=== PATIENT | female | born 1995 | race Caucasian/White ===

== ENCOUNTER 2016-09-13 02:31 | Observation (INO) | payer BC ==
[2016-09-13 05:33] LABS: ABSOLUTE BASOPHILS # (AUTO) 0.1 10^3/uL (0.0-0.2); ABSOLUTE EOSINOPHILS # (AUTO) 0.1 10^3/uL (0.0-0.6); ABSOLUTE LYMPHOCYTES (AUTO) 1.8 10^3/uL (0.5-4.7); ABSOLUTE MONOCYTES (AUTO) 0.8 10^3/uL (0.1-1.4); ABSOLUTE NEUT (AUTO) 10.2 10^3/uL (1.7-8.2); BASOPHILS % (AUTO) 0.4 % (0-2); EOSINOPHILS % (AUTO) 0.5 % (0-6); HEMATOCRIT 41.5 % (36.0-47.0); HEMOGLOBIN 13.4 g/dL (12.0-15.5); HGB HCT DIFFERENCE -1.3; LYMPHOCYTES % (AUTO) 13.8 % (13-45); MEAN CORPUSCULAR HEMOGLOBIN 28.7 pg (27.0-33.4); MEAN CORPUSCULAR HGB CONC 32.3 g/dL (32.0-36.0); MEAN CORPUSCULAR VOLUME 89 fl (80-97); MONOCYTES % (AUTO) 6.5 % (3-13); RED BLOOD COUNT 4.67 10^6/uL (3.72-5.28); RED CELL DISTRIBUTION WIDTH 13.2 % (11.5-14.0); SEGMENTED NEUTROPHILS % (AUTO) 78.8 % (42-78)
[2016-09-13 05:43] LABS: ALANINE AMINOTRANSFERASE 59 U/L (5-35); ALBUMIN 4.6 g/dL (3.7-5.6); ALKALINE PHOSPHATASE 104 U/L (50-135); ANION GAP 12 (5-19); ASPARTATE AMINO TRANSFERASE 188 U/L (5-30); BLOOD UREA NITROGEN 8 mg/dL (7-20); CALCIUM 9.9 mg/dL (8.4-10.2); CARBON DIOXIDE 27 mmol/L (22-30); CHLORIDE 105 mmol/L (98-107); CREATININE RESULT 0.62 mg/dL (0.52-1.25); GLUCOSE 101 mg/dL (75-110); POTASSIUM 3.8 mmol/L (3.6-5.0); TOTAL PROTEIN 7.4 g/dL (6.3-8.2)
[2016-09-13] MEDS ORDERED: OXYCODONE-ACETAMINOPHEN 5-325 MG TABLET PO ONE (05:43)
--- NOTE | 2016-09-13 05:43 | ER Document Report ---
ED GI/ - General Chief Complaint: Abdominal Pain Stated Complaint: ABDOMINAL PAIN Time seen by provider: 05:32 Mode of Arrival: Ambulatory Information source: Patient Notes: 20-year-old female complaining of upper abdominal pain since midnight with some nausea. Pain level is 5/5. She's had 5 episodes over the past 3 weeks. She had a gastric sleeve November 2015. She saw her surgeon in [place] 8 days ago and he suspected gallbladder problems not due to the gastric sleeve surgery. They are visiting the area. No fever or chills. G0. No diarrhea or constipation. No dysuria. She is on her menses at this time. TRAVEL OUTSIDE OF THE [place] IN LAST 30 DAYS: No - Related Data Allergies/Adverse Reactions: No Known Allergies Allergy (Verified 09/13/16 02:39) Home Medications: Current Home Medications No Home Medications 09/13/16 [History] Past Medical History - General Information source: Patient - Social History Smoking Status: Current Every Day Smoker Chew tobacco use (# tins/day): No Frequency of alcohol use: Occasional Drug Abuse: None Lives with: Family Family History: Reviewed & Not Pertinent - Medical History Medical History: Negative Renal/ Medical History: Denies: Hx Peritoneal Dialysis Past Surgical History: Reports: Hx Tonsillectomy, Other - gastric sleeve Review of Systems - Review of Systems Constitutional: No symptoms reported EENT: No symptoms reported Cardiovascular: No symptoms reported Respiratory: No symptoms reported Gastrointestinal: See HPI Genitourinary: No symptoms reported Female Genitourinary: No symptoms reported Musculoskeletal: No symptoms reported Skin: No symptoms reported Hematologic/Lymphatic: No symptoms reported Neurological/Psychological: No symptoms reported Physical Exam - Vital signs Vitals: Temp Pulse Resp BP Pulse Ox 97.6 F 74 18 137/87 H 100 09/13/16 02:41 09/13/16 02:41 09/13/16 02:41 09/13/16 02:41 09/13/16 02:41 Interpretation: Normal - General General appearance: Appears well, Alert In distress: None - HEENT Head: Normocephalic, Atraumatic Eyes: Normal Conjunctiva: Normal. No: Icteric Pupils: PERRL Mucous membranes: Normal Pharynx: Normal Neck: Supple - Respiratory Respiratory status: No respiratory distress Chest status: Nontender Breath sounds: Normal Chest palpation: Normal - Cardiovascular Rhythm: Regular Heart sounds: Normal auscultation Murmur: No - Abdominal Inspection: Normal Distension: No distension Bowel sounds: Normal Tenderness: Tender - mostly RUQ, some epigastric and LUQ Organomegaly: No organomegaly - Back Back: Normal, Nontender. No: CVA tenderness - Extremities General upper extremity: Normal inspection, Nontender, Normal color, Normal ROM , Normal temperature General lower extremity: Normal inspection, Nontender, Normal color, Normal ROM , Normal temperature, Normal weight bearing. No: Madiha's sign - Neurological Neuro grossly intact: Yes Cognition: Normal Orientation: AAOx4 Lola Coma Scale Eye Opening: Spontaneous Lola Coma Scale Verbal: Oriented [place] Coma Scale Motor: Obeys Commands [place] Coma Scale Total: 15 Speech: Normal Motor strength normal: LUE, RUE, LLE, RLE Sensory: Normal - Psychological Associated symptoms: Normal affect, Normal mood - Skin Skin Temperature: Warm Skin Moisture: Dry Skin Color: Normal Skin irregularity: negative: Rash Course - Re-evaluation Re-evalutation: 09/13/16 05:44 I have consulted with the supervisory physician per [facility] Guidelines., dr. castro for the [place] 09/13/16 06:24 RBCs and urine due to menses, LFTs mildly elevated, white count is 13,000 with a minimal shift 78.8 09/13/16 07:27 Pain is resolved pending radiology interpretation of the ultrasound. 09/13/16 07:36 No GI coverage 09/13/16 07:[address] Rojas will come see the patient and the patient care transferred to Saige JONES will take over care of the patient - Vital Signs Vital signs: Temp Pulse Resp BP Pulse Ox 97.6 F 74 18 137/87 H 100 09/13/16 02:41 09/13/16 02:41 09/13/16 02:41 09/13/16 02:41 09/13/16 02:41 - Laboratory Result Diagrams: 09/13/16 05:19 09/13/16 05:19 Laboratory results interpreted by me: 09/13/16 09/13/16 09/13/16 05:19 05:19 05:19 WBC 13.0 H Seg Neutrophils % 78.8 H Absolute Neutrophils 10.2 H AST 188 H ALT 59 H Urine Protein 30 H Urine Ketones TRACE H Urine Blood LARGE H Urine Bilirubin SMALL H Urine Urobilinogen 4.0 H Discharge - Discharge Clinical Impression: Elevated liver enzymes Condition: Stable Disposition: HOME, SELF-CARE
[2016-09-13 06:00] LABS: APPEARANCE,URINE SLIGHTLY-CLOUDY; BILIRUBIN,URINE SMALL (NEGATIVE); CALCIUM OXALATE CRYSTALS,URINE RARE /HPF; GLUCOSE, URINE NEGATIVE (NEGATIVE); KETONES,URINE TRACE mg/dL (NEGATIVE); LEUKOCYTE ESTERASE,URINE NEGATIVE (NEGATIVE); NITRITE,URINE NEGATIVE (NEGATIVE); PROTEIN,URINE 30 mg/dL (NEGATIVE); URINE SPECIFIC GRAVITY 1.032
[2016-09-13] MEDS ORDERED: NORMAL SALINE 1000 ML 1,000 ML IV ONE (06:24)
[2016-09-13] MEDS ORDERED: NORMAL SALINE 1000 ML 1,000 ML IV PRN (08:21)
--- NOTE | 2016-09-13 08:34 | PDOC H&P ---
History of Present Illness Admission Date/PCP: 09/13/2069 Patient complains of: Abdominal pain, nausea History of Present Illness: SWETA PEPPER is a 20 year old female presents to the emergency department complaining of abdominal pain epigastric and radiates to the back for several hours. Over the last 3 weeks patient's had similar episodes, but not as long. It is 8 months status post gastric resection for the city. She lost approximately 80 pounds. There is a family history of gallbladder disease in a grandmother. A week and a half ago the patient was seen by her general surgeon in [facility] and was told she may have gallbladder disease and was set up for a gallbladder ultrasound this week. The patient and her mother traveled to [place] yesterday after which time she developed the acute onset of abdominal pain. As chronic constipation. Denies history of other gastrointestinal symptoms. Not vomited. He emerged from which she had a gallbladder ultrasound showed cholelithiasis, dilated common bile duct and intrahepatic ducts. Surgery was consulted; she was advised admission. Past Medical History GI History Note: Obesity Past Surgical History Past Surgical History: Reports: Tonsillectomy, Other - gastric sleeve resection , laparoscopic, [facility], 2016 Social History Lives with: Family Smoking Status: Current Every Day Smoker Family History Family History: Reviewed & Not Pertinent Family History: Family history gallbladder disease in grandmother Parental Family History Reviewed: Yes Children Family History Reviewed: Yes Sibling(s) Family History Reviewed.: Yes Medication/Allergy Home Medications: No Home Medications 09/13/16 Allergies/Adverse Reactions: No Known Allergies Allergy (Verified 09/13/16 02:39) Review of Systems Constitutional: PRESENT: weight loss Eyes: PRESENT: other - None Ears: ABSENT: hearing changes Nose, Mouth, and Throat: PRESENT: other - None Cardiovascular: PRESENT: other - Denies Respiratory: ABSENT: cough, hemoptysis Gastrointestinal: PRESENT: other - As per history of present illness Genitourinary: PRESENT: other - Patient currently on. Musculoskeletal: PRESENT: other - Denies Neurological: PRESENT: as per HPI Physical Exam Vital Signs: Temp Pulse Resp BP Pulse Ox 97.6 F 74 18 137/87 H 100 09/13/16 02:41 09/13/16 02:41 09/13/16 02:41 09/13/16 02:41 09/13/16 02:41 Intake & Output 09/12/16 09/13/16 09/14/16 06:59 06:59 06:59 Weight 91.7 kg General appearance: PRESENT: no acute distress Head exam: PRESENT: normocephalic Eye exam: PRESENT: EOMI Ear exam: PRESENT: normal external ear exam Mouth exam: PRESENT: moist Neck exam: PRESENT: full ROM Respiratory exam: PRESENT: clear to auscultation dane Cardiovascular exam: PRESENT: RRR Pulses: PRESENT: normal radial pulses, normal femoral pulses, normal dorsalis pedis pul GI/Abdominal exam: PRESENT: other - Operative scars consistent with previous surgery. Minimal right upper quadrant tenderness to deep palpation. No rigidity no peritoneal signs no organomegaly Rectal exam: PRESENT: deferred Extremities exam: PRESENT: full ROM Musculoskeletal exam: PRESENT: full ROM Neurological exam: PRESENT: oriented to person, oriented to place, oriented to time, oriented to situation Psychiatric exam: PRESENT: anxious Results Laboratory Results: 09/13/16 05:19 09/13/16 05:19 09/13/16 09/13/16 09/13/16 05:19 05:19 05:19 WBC 13.0 H RBC 4.67 Hgb 13.4 Hct 41.5 MCV 89 MCH 28.7 MCHC 32.3 RDW 13.2 Plt Count 292 Seg Neutrophils % 78.8 H Lymphocytes % 13.8 Monocytes % 6.5 Eosinophils % 0.5 Basophils % 0.4 Absolute Neutrophils 10.2 H Absolute Lymphocytes 1.8 Absolute Monocytes 0.8 Absolute Eosinophils 0.1 Absolute Basophils 0.1 Sodium 144.0 Potassium 3.8 Chloride 105 Carbon Dioxide 27 Anion Gap 12 BUN 8 Creatinine 0.62 Est GFR ( Amer) > 60 Est GFR (Non-Af Amer) > 60 Glucose 101 Calcium 9.9 Total Bilirubin 1.0 AST 188 H ALT 59 H Alkaline Phosphatase 104 Total Protein 7.4 Albumin 4.6 Lipase 84.0 Urine Color EJREMY Urine Appearance SLIGHTLY-CLOUDY Urine pH 5.0 Ur Specific [place] 1.032 Urine Protein 30 H Urine Glucose (UA) NEGATIVE Urine Ketones TRACE H Urine Blood LARGE H Urine Nitrite NEGATIVE Ur Leukocyte Esterase NEGATIVE Urine RBC (Auto) >182 Impressions: Abdomen Ultrasound 09/13/16 06:32 IMPRESSION: 1. Fatty infiltrated liver. 2. Small gallstones. Positive sonographic Navarrete's sign. Dilated intra and extrahepatic bile ducts. Status: Image reviewed by me - Gallstones multiple within the lumen of the gallbladder; duct measured at 9 mm. No choledocholithiasis seen. Fatty infiltration of the liver Assessment & Plan - Diagnosis (1) Elevated liver enzymes Is this a current diagnosis for this admission?: YesPlan: Possibly secondary to passing of gallstone through the common bile duct however alkaline phosphatase and total bilirubin within normal limits. Furthermore, her lipase level is normal. Patient is currently asymptomatic (2) Symptomatic cholelithiasis Is this a current diagnosis for this admission?: YesPlan: Clinically and radiographically the patient has evidence of chronic cholecystitis with cholelithiasis. He may have passed a stone through her common bile duct currently her total bilirubin is normal, normal bowel duct is only minimally elevated and she is pain-free. I have offered interval laparoscopic, possible open cholecystectomy with intraoperative cholangiography. [facility]. we also discussed the risk benefit ratio of leaving the hospital , traveling back to [place], [address], and seeking medical and surgical treatment there over the weekend. Intimately we collectively decided to stay at [facility] and undergo the procedure as described by Dr. markham. I have discussed the role of intraoperative cholangiography, and possible results. If the patient is found to have retained common bile duct stone, she may require postoperative ERCP, which may or may not be available at [facility]. The patient and her mother understand and agree to proceed with the offered procedure. Thorough explanation of the mechanics of the operation, as well as risks benefits and alternatives including bleeding, infection, bile duct injury, need for a drain, and additional surgery were all discussed. (3) Smoker Is this a current diagnosis for this admission?: Yes (4) Status post gastric surgery Is this a current diagnosis for this admission?: YesPlan: Status post gastric sleeve, restrictive bariatric procedure, 2016, [facility]; no evidence of complications from that surgery this time. - Time Time Spent: 50 to 70 Minutes Critical Time spent with patient: 15-24 minutes Medications reviewed and adjusted accordingly: Yes Anticipated discharge: Home - Inpatient Certification Based on my medical assessment, after consideration of the patient's comorbidities, presenting symptoms, or acuity I expect that the services needed warrant INPATIENT care.: Yes I certify that my determination is in accordance with my understanding of Medicare's requirements for reasonable and necessary INPATIENT services [42 CFR 412.3e].: Yes Medical Necessity: Need For IV Fluids, Need for Pain Control, Need for IV Antibiotics, Need for Surgery
[2016-09-13] MEDS ORDERED: BUPIVACAINE HCL 0.25 % INJ/PF (2.5 MG/1 ML) 30 ML VIAL ONE (08:47)
[2016-09-13] MEDS ORDERED: MIDAZOLAM 2 MG/2 ML INJ ONE (08:56)
[2016-09-13] MEDS ORDERED: PROPOFOL INJ 200 MG/20 ML VIAL IV ONE (08:56)
[2016-09-13] MEDS ORDERED: FENTANYL CITRATE INJ/PF 250 MCG/5 ML AMPULE ONE (08:56)
[2016-09-13] MEDS ORDERED: MORPHINE SULFATE 10 MG/ML INJ ONE (08:57)
[2016-09-13] MEDS ORDERED: CEFAZOLIN INJ 1 GM VIAL ONE (09:41)
[2016-09-13] MEDS ORDERED: FENTANYL CITRATE INJ/PF 100 MCG/2 ML AMPUL IV PRN ×3 (09:53)
[2016-09-13] MEDS ORDERED: MORPHINE SULFATE 10 MG/ML INJ IV PRN ×2 (09:53→10:55)
[2016-09-13] MEDS ORDERED: PROMETHAZINE HCL INJ 25 MG/1 ML VIAL IV PRN ×2 (09:53)
[2016-09-13] MEDS ORDERED: DIPHENHYDRAMINE HCL 50 MG/ML VIAL IV PRN (09:53)
[2016-09-13] MEDS ORDERED: MEPERIDINE HCL/PF INJ 25 MG/1 ML DISP.SYRIN IV PRN (09:53)
[2016-09-13] MEDS ORDERED: GLUCAGON,HUMAN RECOMB 1 MG INJ ONE (10:21)
[2016-09-13] MEDS ORDERED: ONDANSETRON HCL INJ/PF 4 MG/2 ML SDV IV PRN (10:55)
--- NOTE | 2016-09-13 11:15 | Operative Report ---
Operative Report DATE OF SURGERY: 09/13/16 PREOPERATIVE DIAGNOSIS: 1. Symptomatic cholelithiasis with cholecystitis. 2. Elevated liver function studies. 3. Dilated common bile duct POSTOPERATIVE DIAGNOSIS: Same with acute cholecystitis; retained distal common bile duct stone(s) OPERATION: 1. Laparoscopic cholecystectomy. 2. Intraoperative cholangiography with full strength Isovue contrast. 3. Interpretation of intraoperative cholangiography SURGEON: FERNANDO SIERRA ANESTHESIA: GA TISSUE REMOVED OR ALTERED: 1 gallbladder with stones COMPLICATIONS: None ESTIMATED BLOOD LOSS: scant INTRAOPERATIVE FINDINGS: See below PROCEDURE: After obtaining informed consent, the patient was taken to the operating room. General Anesthesia was induced; the arms were extended, and the abdomen was exposed, and prepped and draped in a sterile fashion. Instrumentation was set up for laparoscopic cholecystectomy. Surgical plan and surgical timeout were conducted. A horizontal incision was made above the umbilicus at the previous transverse scar, and a verres needle was inserted uneventfully into the peritoneal cavity. Pneumoperitoneum was established. The verres needle was removed and a 5 mm trocar was inserted and a 5 mm flexible laparoscope was inserted. Visualization of the peritoneal cavity confirmed safe, uneventful entry. Under direct visualization 3 additional 5 mm ports were established, one in the subxiphoid position and second and third in the subcostal position at the site of the previous scars. Visualization of the hepatobiliary anatomy revealed no anatomic variations. A grasper was placed on the fundus of the gallbladder and the gallbladder is elevated over the right surface of the liver; a second grasper was used to grasp the infundibulum of the gallbladder. The neck of the gallbladder and junction with the cystic duct was dissected out. The Cystic artery was in its usual location medial and cephalad to the cystic duct. The cystic artery was surrounded with a right angle clamp, clipped twice proximally and divided with laparoscopic scissors. We now opened the triangle of Calot by dividing the peritoneal reflection on both the medial and lateral sides of the cystic duct infundibular junction. The critical view was obtained. The gallbladder wall was very thin as was the tissue in the neck of the gallbladder. We now milked the cystic duct of any possible stones; during this maneuver, a hole was made in the neck of the gallbladder and this was used to evacuate several small stones. A laparoscopic clip was placed on the gallbladder side of the neck, and using laparoscopic kaylin, hole in the cystic duct was opened. A percutaneous visible cholangiogram catheter was threaded through the anterior abdominal wall uneventfully through a stab wound made with the 11 blade. The mini introducer was removed, after threaded into the cystic duct, then secured into place with a clip. Of note, bile expressed from the cystic duct opening appeared to be under pressure. Several small stones were milked out of the more proximal cystic duct. We leveled the patient out, removed laparoscopic instruments and proceeded to perform intraoperative cholangiography using full strength Isovue total of 3 mL. This revealed visualization of the more proximal cystic duct, and the common bile duct, which was dilated and tapered towards the distal end. Subsequent images showed visualization of the common hepatic drop, and the right and left hepatic ducts. Gave the patient 1 mg of glucagon, waited approximately 10 minutes and shot subsequent films and there remained no visualization of contrast into the duodenum. in Fact there was a meniscus sign at the distal common bile duct consistent with duct obstruction due to stone. We returned to the peritoneal cavity laparoscopically, removed the clip on the cystic duct, and removed the cholangiogram catheter. We transected the cystic duct completely and allowed it to decompress completely. The gallbladder was now removed from the undersurface of the liver using hook cautery dissection. Graspers were repositioned and the gallbladder was removed uneventfully by placing it in an Endobag along with several spilled stones and brought from the abdominal cavity through the super umbilical port site incision. The specimen was examined, then passed off to pathology for permanent analysis. We returned to the peritoneal cavity check for bleeding, and there was none. We then secured the cystic duct stump with a single 3-0 loop PDS suture; We Confirmed satisfactory placement of clips on the cystic artery were secured . At this point we felt the operation was complete. The subcutaneous tissue was then anesthetized with quarter percent Marcaine Sponge and needle counts are correct. All ports removed under direct visualization pneumoperitoneum evacuated, and 5 mm port wounds closed with 3-0 Vicryl suture, benzoin and Steri -Strips. The patient was extubated, and taken to the recovery room in stable condition. Arrangements will be made for the patient to receive postoperative ERCP, clearance of her distal common bile duct.
[2016-09-13] MEDS: FENTANYL CITRATE INJ/PF 100 MCG/2 ML AMPUL ONE ×2 (11:20→11:25)
[2016-09-13] MEDS ORDERED: ONDANSETRON HCL INJ/PF 4 MG/2 ML SDV ONE ×2 (11:21→11:34)
[2016-09-13] MEDS ORDERED: ROCURONIUM BROMIDE INJ 50 MG/5 ML VIAL IV ONE (11:34)
[2016-09-13] MEDS ORDERED: SUCCINYLCHOLINE CHLORIDE INJ 200 MG/10 ML VIAL ONE (11:34)
[2016-09-13] MEDS ORDERED: DEXAMETHASONE SOD PHOSPHATE INJ 4 MG/1 ML VIAL ONE (11:34)
--- NOTE | 2016-09-13 13:39 | PDOC TRANSFER SUMMARY ---
General Admission Date/PCP: 09/13/16 08:19 Resuscitation Status: Full Code - Transfer Diagnosis (1) Elevated liver enzymes Is this a current diagnosis for this admission?: Yes (2) Symptomatic cholelithiasis Is this a current diagnosis for this admission?: Yes (3) Smoker Is this a current diagnosis for this admission?: Yes (4) Status post gastric surgery Is this a current diagnosis for this admission?: Yes - Transfer Medications Home Medications: No Home Medications 09/13/16 Transfer Medications: Current Medications Sodium Chloride (Nacl 0.9% 1000 Ml Iv Soln) 1,000 mls @ 150 mls/hr IV CONTINUOUS PRN PRN Reason: THIS MED IS NOT "PRN" Stop: 10/13/16 08:20 Last Admin: 09/13/16 12:29 Dose: 1,000 ml Cefazolin Sodium/Dextrose (Ancef Rtu 1 Gm/D5w 50 Ml Premix Bag) 1 gm in 50 mls @ 100 mls/hr IV Q8 JOSE DAVID Stop: 09/20/16 13:59 Morphine Sulfate (Morphine 10 Mg/Ml Inj) 2 mg IV Q4HP PRN PRN Reason: PAIN Stop: 09/20/16 10:54 Last Admin: 09/13/16 12:28 Dose: 2 mg Ondansetron HCl (Zofran Inj/Pf 4 Mg/2 Ml Sdv) 4 mg IV Q4HP PRN PRN Reason: FOR NAUSEA/VOMITING Stop: 10/13/16 10:54 - Allergies Allergies/Adverse Reactions: No Known Allergies Allergy (Verified 09/13/16 02:39) Hospital Course Hospital Course: The patient is a 20-year-old white female, originally from [place], 1 year status post partial sleeve gastrectomy for morbid obesity who lost 80 pounds and now presents to the emergency department with a several week history of intermittent abdominal pain. She traveled to [place] with her mother and because of unrelenting abdominal pain and nausea she was seen in the emergency department. She was evaluated found to have multiple gallstones by ultrasonography, dilated intra-and extrahepatic biliary ducts and mildly elevated AST and ALt. Total bilirubin and alkaline phosphatase were normal. The patient's pain did resolve. The patient was admitted to the surgical service kept nothing by mouth and taken to the operating room where she underwent laparoscopic cholecystectomy, intraoperative cholangiography. She was found to have a gallbladder with multiple stones, multiple stones in the cystic duct which were removed. The cholangiogram showed an intact intra-and extrahepatic biliary tree with dilatation, and no reflux of contrast into the duodenum despite passage of time and glucagon injection. The findings were consistent with distal common duct stone. The patient tolerated procedure well. Arrangements were made through Dr. Moses Lin, general surgeon, to have the patient transferred to [facility] where his team in conjunction with on-call gastroenterology will coordinate ERCP, stone extraction. All of the above events and plans with the patient and patient's mother. They are in agreement to proceed. Physical Exam Vital Signs: Temp Pulse Resp BP Pulse Ox 97.3 F 58 L 16 111/73 99 09/13/16 13:02 09/13/16 13:02 09/13/16 13:02 09/13/16 13:02 09/13/16 13:02 Intake & Output 09/12/16 09/13/16 09/14/16 06:59 06:59 06:59 Intake Total 2500 Output Total 1220 Balance 1280 General appearance: PRESENT: no acute distress GI/Abdominal exam: PRESENT: other - Benign minimal abdominal tenderness postoperative findings Results Impressions: Cholangiogram 09/13/16 00:00 IMPRESSION: Intraoperative cholangiogram demonstrates obstruction of the distal common duct by a small retained distal ductal stone Abdomen Ultrasound 09/13/16 06:32 IMPRESSION: 1. Fatty infiltrated liver. 2. Small gallstones. Positive sonographic Navarrete's sign. Dilated intra and extrahepatic bile ducts. Plan Discharge Plan: 1. Transfer via ground rescue to [facility], direct admit , for interval ERCP, stone extraction
[2016-09-13] MEDS ORDERED: CEFAZOLIN SODIUM 1 GM in DEXTROSE 5%-WATER 50 ML IV SCH (14:00)
[2016-09-13] MEDS ORDERED: CEFAZOLIN 1 GM/D5W RTU 1 GM/50 ML RTUPB IV SCH (14:00)
[2016-09-13 15:29] VITALS: BP 122/74
== END 2016-09-13 15:25 | disposition short-term general hospital (02) ==
LOC: ER 02:31 → EH 08:19 → UNDOADMOB 08:48 → 2N 12:05
PROVIDERS: ADMIT Surgery; ATTEND Surgery
PROC: BF031ZZ Plain Radiography of Gallbladder and Bile Ducts using Low Osmolar Contrast (ICD-10-PCS; 2016-09-13)
PROC: 0FT44ZZ Resection of Gallbladder, Percutaneous Endoscopic Approach (ICD-10-PCS; principal; 2016-09-13 09:00)
DX: K80.10 Calculus of gallbladder with chronic cholecystitis without obstruction (principal); K82.8 Other specified diseases of gallbladder; R74.8 Abnormal levels of other serum enzymes; F17.200 Nicotine dependence, unspecified, uncomplicated; Z98.84 Bariatric surgery status
CPT/HCPCS: 99284; 36415; 84702; 83690; 85025; 80053; 81001; 88304 ×2; 74300; 76705; 47563; G0378 ×2; Q9967; J2250; J0690 ×2; J3490; J1100; J3010 ×2; J1610; J2270; J0330; J2405; J7030; J2704; 790